=== PATIENT | female | born 1945 | race Caucasian/White ===

== ENCOUNTER 2016-11-10 14:37 | Outpatient (CLI) | payer MEDICARE | END 2016-11-10 14:38 | disposition critical access hospital (66) | LOC: EMS 14:37 | PROVIDERS: ATTEND Surgery | DX: R06.02 Shortness of breath (principal); R53.83 Other fatigue; R42 Dizziness and giddiness; R20.2 Paresthesia of skin | CPT/HCPCS: A0425; A0427 ==

== ENCOUNTER 2016-11-10 15:10 | Emergency (ER) | payer MEDICARE ==
--- NOTE | 2016-11-10 15:25 | ED Physician Documentation ---
PD HPI CHEST PAIN - Stated complaint Stated Complaint: SOA - Chief complaint Chief Complaint: Cardiac - History obtained from History obtained from: Patient - Additional information Additional information: This patient is a 71-year-old female without any history of established medical problems she does take a multivitamin vitamin D and fish oil. She has been evaluated for palpitations in the past and has had a negative Holter monitor. She apparently is pending evaluation with a new Holter monitor but is not come in the mail yet. This patient frequently has episodes of palpitations. This patient today felt weak and lightheaded and noticed that she felt worse today while working in her garden. She did not really have any chest pain or chest heaviness. There is no nausea vomiting. No fever chills constipation or diarrhea. She says she just felt weak and his weakness was made worse by standing. She denies having any history of known hypertension, diabetes, coronary disease, dyslipidemia and there is no smoking drinking or drug use history that is significant. Review of systems: For pertinent positive and negative questions for the review of systems please see history of present illness. Otherwise all other systems have been reviewed and are negative. Dragon disclaimer: Parts of this medical record were created using voice recognition technology. Because of the inherent limitations of this system occasional same sounding word substitutions do occur and persist despite proofreading. Please read the document for context. PD PAST MEDICAL HISTORY - Past Medical History Cardiovascular: None Respiratory: None Neuro: None Endocrine/Autoimmune: None Derm: Other - Past Surgical History Past Surgical History: No - Present Medications Home Medications: Ambulatory Orders Medication Instructions Recorded Confirmed Alprazolam [Xanax] 0.25 mg PO BID PRN #12 tablet 11/10/16 - Allergies Allergies/Adverse Reactions: Allergies Allergy/AdvReac Type Severity Reaction Status Date / Time bacitracin Allergy Rash Verified 11/25/15 14:44 [From Neosporin ([id number])] bacitracin zinc * Allergy Rash Verified 11/25/15 14:44 [From Neosporin ([id number]-[id number])] neomycin sulfate * Allergy Rash Verified 11/25/15 14:44 [From Neosporin ([id number]-[id number])] polymyxin B Allergy Rash Verified 11/25/15 14:44 [From Neosporin ([id number])] - Social History Does the pt smoke?: No Smoking Status: Never smoker Does the pt drink ETOH?: No Does the pt have substance abuse?: No PD ED PE NORMAL - General General: Alert and oriented X 3, Other (Thin frail very anxious female) - HEENT HEENT: Atraumatic, PERRL, EOMI - Neck Neck: No bony TTP - Cardiac Cardiac: RRR, No gallop - Respiratory Respiratory: No respiratory distress, Clear bilaterally - Abdomen Abdomen: Normal bowel sounds, Soft, Non tender, Non distended - Rectal Rectal: Deferred - Back Back: No CVA TTP, No spinal TTP - Derm Derm: Normal color, No rash - Extremities Extremities: No deformity, No tenderness to palpate, Normal ROM s pain, No edema - Neuro Neuro: Alert and oriented X 3, director of 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 2-12 intact, No motor deficit, No sensory deficit - Psych Psych: Other (Anxious and shaky) Results - Vitals Vitals: Vital Signs - 24 hr 11/10/16 11/10/16 11/10/16 15:11 15:57 17:45 Temperature 36.4 C L Heart Rate 80 77 75 Respiratory 26 H 24 16 Rate Blood Pressure 112/94 H 124/67 107/67 O2 Saturation 99 99 97 Oxygen O2 Source Room air - Labs Labs: Laboratory Tests 11/10/16 11/10/16 11/10/16 15:53 15:53 15:53 WBC 5.6 RBC 4.02 L Hgb 12.6 Hct 37.1 MCV 92.3 MCH 31.4 H MCHC 34.0 RDW 12.8 Plt Count 197 MPV 8.6 Neut # 3.7 Lymph # 1.3 L Bates # 0.4 Eos # 0.1 Baso # 0.1 Absolute Nucleated RBC 0.00 Nucleated RBCs 0.0 Sodium 134 L Potassium 3.7 Chloride 101 Carbon Dioxide 22 Anion Gap 11.0 BUN 18 Creatinine 0.9 Estimated GFR (MDRD) 62 L Glucose 154 H Calcium 9.7 Troponin I < 0.04 TSH Urine Color Urine Clarity Urine pH Ur Specific [place] Urine Protein Urine Glucose (UA) Urine Ketones Urine Occult Blood Urine Nitrite Urine Bilirubin Urine Urobilinogen Ur Leukocyte Esterase Ur Microscopic Review Urine Culture Comments 11/10/16 11/10/16 15:53 17:39 WBC RBC Hgb Hct MCV MCH MCHC RDW Plt Count MPV Neut # Lymph # Bates # Eos # Baso # Absolute Nucleated RBC Nucleated RBCs Sodium Potassium Chloride Carbon Dioxide Anion Gap BUN Creatinine Estimated GFR (MDRD) Glucose Calcium Troponin I TSH 4.68 Urine Color YELLOW Urine Clarity CLEAR Urine pH 7.0 Ur Specific [place] <=1.005 Urine Protein NEGATIVE Urine Glucose (UA) NEGATIVE Urine Ketones 40 H Urine Occult Blood NEGATIVE Urine Nitrite NEGATIVE Urine Bilirubin NEGATIVE Urine Urobilinogen 0.2 (NORMAL) Ur Leukocyte Esterase NEGATIVE Ur Microscopic Review NOT INDICATED Urine Culture Comments NOT INDICATED PD MEDICAL DECISION MAKING - ED course ED course: Patient is a very nice 71-year-old female brought in with the chief complaints of feeling dizzy and having palpitations. This patient does have a history of palpitations in the past and actually had a Holter monitor testing done in the past that was unremarkable. EMS mentions that when they first got there the patient appeared very anxious and panicky she was noted to be mildly hypertensive, tachycardic and was shaking. By the time she reached the emergency department she is better but did have a look of severe anxiousness. We tried to calm her down verbally and had her take some deep breaths and most of her neurologic symptoms of numbness and tingling have dissipated. She has never had any chest pain or shortness of breath this a feeling of a rapid irregular heart beat and dizziness which she has had previously. On physical examination she is a well-appearing 71-year-old female who looks young for her age. She is thin and otherwise has a normal cardiac and pulmonary exam. Chest x-ray shows no acute disease blood work on this patient is unremarkable including troponin and urine is negative for infection EKG shows sinus rhythm at 74 bpm the WA QRS and QT intervals are within normal limits. There is a single lead with T-wave inversion in V2. Otherwise there is no electrocardiographic evidence of recent or remote infarct or ischemia in my opinion. I think this patient is low risk for ACS. From what I saw on what I know about her history think there is definitely an anxiety component. I did recommend that she continue to get the Holter monitor follow-up with her physician and return if worse however I did recommend mainly for diagnostic ability to try a very small dose of Xanax if she gets 1 of these attacks again to see if it helps. Disposition: To home Clinical impression: 1. Palpitations 2. Suspect panic or anxiety attack Departure - Departure Disposition: 01 Home, Self Care Clinical Impression: Panic anxiety syndrome Condition: Good Instructions: ED Panic Attack Follow-Up: Saloni Childs ARNP [Primary Care Provider] - Prescriptions: Alprazolam [Xanax] 0.25 mg PO BID PRN #12 tablet PRN Reason: Anxiety
[2016-11-10] MEDS ORDERED: SODIUM CHLORIDE 0.9% 1,000 ML IV ONE (15:42)
[2016-11-10] MEDS ORDERED: ONDANSETRON 4 MG/2 ML VIAL ONE (16:02)
[2016-11-10] MEDS ORDERED: ONDANSETRON 4 MG/2 ML VIAL IVP STA (16:03)
[2016-11-10] MEDS ORDERED: LORazepam 2 MG/ML SYRINGE IVP STA (16:03)
[2016-11-10 16:04] LABS: BASOPHILS # (AUTO) 0.1 10^3/uL (0.0-0.1); EOSINOPHILS # (AUTO) 0.1 10^3/uL (0.0-0.7); HCT - HEMATOCRIT 37.1 % (37.0-47.0); HGB - HEMOGLOBIN 12.6 g/dL (12.0-16.0); LYMPHOCYTES # (AUTO) 1.3 10^3/uL (1.5-3.5); LYMPHOCYTES % (AUTO) 23.7 %; MEAN CORPUSCULAR HEMOGLOBIN 31.4 pg (27.0-31.0); MEAN CORPUSCULAR VOLUME 92.3 fL (81.0-99.0); MEAN PLATELET VOLUME 8.6 fL (7.9-10.8); MONOCYTES # (AUTO) 0.4 10^3/uL (0.0-1.0); MONOCYTES % (AUTO) 7.5 %; NEUTROPHILS # (AUTO) 3.7 10^3/uL (1.5-6.6); NEUTROPHILS % (AUTO) 66.8 %; RED BLOOD COUNT 4.02 10^6/uL (4.20-5.40); RED CELL DISTRIBUTION WIDTH 12.8 % (12.0-15.0); UNCORRECTED WHITE BLOOD COUNT 5.6 x10^3/uL; WHITE BLOOD COUNT 5.6 x10^3/uL (4.8-10.8)
[2016-11-10] MEDS ORDERED: LORazepam 2 MG/ML SYRINGE ONE (16:04)
--- NOTE | 2016-11-10 16:07 | XRAY Preliminary Report ---
Exam: XR Chest 1 View IMPRESSION: No acute intrathoracic plain film abnormality. [facility] SITE ID: [id number]
--- NOTE | 2016-11-10 16:09 | XRAY Report ---
EXAM: CHEST RADIOGRAPHY EXAM DATE: 11/10/2016 04:01 PM. CLINICAL HISTORY: PALPITATIONS. COMPARISON: 05/22/2014. TECHNIQUE: 1 view. FINDINGS: Lungs/Pleura: Lungs are well expanded. Relative increase in opacity within the left lateral mid chest is probably secondary to overlying soft tissue. No evidence of acute consolidation or effusion. No p neumothorax. Mediastinum: Within exam limitations, cardiomediastinal contour is normal. Other: There is scoliotic curvature of the thoracolumbar spine. IMPRESSION: No acute intrathoracic plain film abnormality. [facility] Referring Provider Line: [phone] SITE ID: [id number]
[2016-11-10 16:33] LABS: CALCIUM 9.7 mg/dL (8.5-10.3); CREATININE 0.9 mg/dL (0.4-1.0); POTASSIUM 3.7 mmol/L (3.5-5.0)
[2016-11-10 17:45] VITALS: BP 107/67
[2016-11-10 17:52] LABS: BILIRUBIN,URINE NEGATIVE (NEGATIVE)
[2016-11-10 17:53] LABS: UA CHARGE (STRIP ONLY) YES; UR CULTURE IF IND NOT INDICATED
== END 2016-11-10 18:18 | disposition home or self-care (01) ==
LOC: ED 15:10
DX: F41.0 Panic disorder [episodic paroxysmal anxiety] (principal); I45.81 Long QT syndrome; R00.0 Tachycardia, unspecified
CPT/HCPCS: 36415; 71010; 80048; 81003; 84443; 84484; 85025; 93005; 96374; 96375; 99284; J2060; 81001; 87086

== ENCOUNTER 2018-12-18 16:03 | Emergency (ER) | payer MEDICARE ==
[2018-12-18 16:31] LABS: BASOPHILS # (AUTO) 0.1 10^3/uL (0.0-0.1); EOSINOPHILS # (AUTO) 0.2 10^3/uL (0.0-0.7); EOSINOPHILS % (AUTO) 2.4 %; HGB - HEMOGLOBIN 11.9 g/dL (12.0-16.0); LYMPHOCYTES # (AUTO) 1.6 10^3/uL (1.5-3.5); MEAN CORPUSCULAR HEMOGLOBIN 31.5 pg (27.0-31.0); MEAN CORPUSCULAR HGB CONC 33.4 g/dL (32.0-36.0); MEAN CORPUSCULAR VOLUME 94.2 fL (81.0-99.0); MONOCYTES # (AUTO) 0.4 10^3/uL (0.0-1.0); MONOCYTES % (AUTO) 5.6 %; NEUTROPHILS # (AUTO) 5.1 10^3/uL (1.5-6.6); NEUTROPHILS % (AUTO) 68.7 %; PLT - PLATELET COUNT 206 10^3/uL (130-450); RED BLOOD COUNT 3.78 10^6/uL (4.20-5.40); RED CELL DISTRIBUTION WIDTH 12.3 % (12.0-15.0); WHITE BLOOD COUNT 7.4 x10^3/uL (4.8-10.8)
--- NOTE | 2018-12-18 16:44 | ED Physician Documentation ---
PD HPI CHEST PAIN - Stated complaint Stated Complaint: CP - Chief complaint Chief Complaint: Cardiac - History obtained from History obtained from: Patient - History of Present Illness Timing - onset: How many hours ago (7), Today Timing - onset during: Rest Timing - details: Abrupt onset (she had onset of chest tightness intermittently this morning about 9 am. lasted for minute or so. Occurred a few times through the morning not related to walking, position, nor eating. No prior similar.), Now resolved, Waxing and waning Quality: Tightness, Aching. No: Sharp, Tearing Location: Substernal Radiation: No: Jaw, Neck, Back Improved by: No: Rest Worsened by: No: Exertion, Inspiration, Eating, Movement Associated symptoms: No: Shortness of air, Nausea, Feeling faint / dizzy, Cough Similar symptoms before: Has not had sx before Recently seen: Not recently seen Review of Systems Constitutional: denies: Fever Nose: denies: Rhinorrhea / runny nose, Congestion Throat: denies: Sore throat Respiratory: denies: Cough GI: denies: Abdominal Pain, Nausea, Vomiting Skin: denies: Rash, Lesions PD PAST MEDICAL HISTORY - Past Medical History Cardiovascular: None Respiratory: None Endocrine/Autoimmune: None Derm: Other - Past Surgical History Past Surgical History: No - Present Medications Home Medications: Ambulatory Orders Medication Instructions Recorded Confirmed Alprazolam [Xanax] 0.25 mg PO BID PRN #12 tablet 11/10/16 - Allergies Allergies/Adverse Reactions: Allergies Allergy/AdvReac Type Severity Reaction Status Date / Time bacitracin Allergy Rash Verified 12/18/18 16:13 [From Neosporin ([id number]-[id number])] bacitracin zinc * Allergy Rash Verified 12/18/18 16:13 [From Neosporin (ciy-tql-nddwd)] neomycin sulfate * Allergy Rash Verified 12/18/18 16:13 [From Neosporin (iat-[id number])] polymyxin B Allergy Rash Verified 12/18/18 16:13 [From Neosporin ([id number]-hhq-[id number])] - Social History Does the pt smoke?: No Smoking Status: Never smoker Does the pt drink ETOH?: No Does the pt have substance abuse?: No PD ED PE NORMAL - Vitals Vital signs reviewed: Yes - General General: Alert and oriented X 3, No acute distress, Well developed/nourished - HEENT HEENT: Pharynx benign - Neck Neck: Supple, no meningeal sign, No adenopathy - Cardiac Cardiac: RRR, No murmur - Respiratory Respiratory: Clear bilaterally, Other (no chestwall tenderness) - Abdomen Abdomen: Normal bowel sounds, Soft, Non tender, Non distended - Back Back: No CVA TTP - Derm Derm: Normal color, Warm and dry - Extremities Extremities: No deformity, No tenderness to palpate, Normal ROM s pain, No edema, No calf tenderness / cord - Neuro Neuro: Alert and oriented X 3, No motor deficit, Normal speech Results - Vitals Vitals: Oxygen O2 Source Room air - EKG (time done) 16:17 Rate: Rate (enter#) (80) Rhythm: NSR Fishtail: Normal Intervals: Normal DE QRS: Normal Ischemia: Normal ST segments. No: ST elevation c/w ischemia, ST depression - Labs Labs: Laboratory Tests 12/18/18 12/18/18 12/18/18 16:25 16:25 16:25 WBC 7.4 RBC 3.78 L Hgb 11.9 L Hct 35.6 L MCV 94.2 MCH 31.5 H MCHC 33.4 RDW 12.3 Plt Count 206 MPV 10.0 Neut # (Auto) 5.1 Lymph # (Auto) 1.6 [place] # (Auto) 0.4 Eos # (Auto) 0.2 Baso # (Auto) 0.1 Absolute Nucleated RBC 0.00 Nucleated RBC % 0.0 Sodium 136 Potassium 3.5 Chloride 101 Carbon Dioxide 26 Anion Gap 9.0 BUN 20 Creatinine 0.7 Estimated GFR (MDRD) 82 L Glucose 175 H Calcium 9.3 Total Bilirubin 0.4 AST 35 ALT 30 Alkaline Phosphatase 62 Troponin I High Sens 4.3 Total Protein 6.3 L Albumin 3.9 Globulin 2.4 Albumin/Globulin Ratio 1.6 Lipase 37 - Rads (name of study) chest xray Radiology: Prelim report reviewed (normal), See rad report PD MEDICAL DECISION MAKING - ED course Complexity details: considered differential (intermittent nonexertional CP with normal labs, ECG, Xray. Does not sound like ACS. ), d/w patient Departure - Departure Disposition: 01 Home, Self Care Clinical Impression: Chest pain Qualifiers: Chest pain type: precordial pain Qualified Code(s): R07.2 - Precordial pain Condition: Stable Record reviewed to determine appropriate education?: Yes Instructions: ED Chest Pain Atypical Unkn Cause Follow-Up: Adelaide Lambert MD [Primary Care Provider] - Comments: No signs of heart failure, lung problems, heart attack or other significant process. It is not clear what the pain is from. Consider trying some anti- inflammatories such as naproxen or ibuprofen twice daily for the next several days. Recheck if not improved over the next several days and return sooner or follow-up if you have other symptoms develop as well such as fever, cough, rash, etc. or if the pattern of the pain correlates with activity or eating or breathing. Discharge Date/Time: 12/18/18 18:14
[2018-12-18 16:48] LABS: ALBUMIN 3.9 g/dL (3.2-5.5); ALBUMIN/GLOBULIN RATIO 1.6 (1.0-2.2); BILIRUBIN,TOTAL 0.4 mg/dL (0.2-1.0); CALCIUM 9.3 mg/dL (8.5-10.3); CREATININE 0.7 mg/dL (0.4-1.0); TOTAL PROTEIN 6.3 g/dL (6.7-8.2)
--- NOTE | 2018-12-18 17:06 | XRAY Report ---
Reason: CP Procedure Date: 12/18/2018 Accession Number: [id number] / [id number] Procedure: XR - Chest 1 View X-Ray CPT Code: 38001 FULL RESULT: EXAM: CHEST RADIOGRAPHY EXAM DATE: 12/18/2018 04:54 PM. CLINICAL HISTORY: Chest pain. COMPARISON: None. TECHNIQUE: 1 view. FINDINGS: Lungs/Pleura: No focal opacities evident. No pleural effusion. No pneumothorax. Mediastinum: Within exam limitations, the cardiomediastinal contour is normal. Other: Diffuse degenerative and scoliotic changes are seen in the spine. No acute osseous abnormality is demonstrated. IMPRESSION: No acute cardiopulmonary abnormality. Moderate scoliotic degenerative changes of the thoracolumbar spine seen. [facility]
[2018-12-18] MEDS ORDERED: KETOROLAC 15 MG/ML VIAL IVP STA (17:39)
[2018-12-18] MEDS ORDERED: MAG HYDROX/AL HYDROX/SIMETH 30 ML UDC PO STA (17:40)
[2018-12-18 18:04] VITALS: BP 119/75
[2018-12-18] MEDS ORDERED: IBUPROFEN 600 MG TABLET PO STA (18:06)
== END 2018-12-18 18:14 | disposition home or self-care (01) ==
LOC: ED 16:03
DX: R07.2 Precordial pain (principal)
CPT/HCPCS: 36415; 71045; 80053; 83690; 84484; 85025; 93005; 99284; A9270

== ENCOUNTER 2019-08-04 02:45 | Emergency (ER) | payer MEDICARE ==
--- NOTE | 2019-08-04 03:12 | ED Physician Documentation ---
PD HPI CHEST PAIN - Stated complaint Stated Complaint: FAST HEART - Chief complaint Chief Complaint: Cardiac - History obtained from History obtained from: Patient - History of Present Illness Timing - onset: Enter time (2204) Timing - onset during: Rest Timing - duration: Minutes Timing - details: Abrupt onset, Now resolved Quality: Throbbing Location: Substernal, Left chest Radiation: Left upper extremity Worsened by: No: Exertion, Inspiration, Eating, Movement, Palpation, Position Associated symptoms: Palpitations. No: Shortness of air, Diaphoresis, Nausea, Vomiting, Feeling faint / dizzy, General Weakness, Cough Similar symptoms before: Diagnosis (anxiety) Recently seen: Not recently seen - Additional information Additional information: Previously well 74-year-old female with a history of anxiety and prior episodes of palpitations which have been investigated with the use of a Holter monitor without findings has had an episode today of sensation of a rapid irregular heart rate and some tingling down her left arm. This lasted several minutes and resolved. She did not check her pulse. She has had similar episodes previously and there have never been findings. She considered staying home and when a second episode happened lasting less time and less severe she decided to come to the emergency department. Over the past week she has had some burning in her upper chest with breathing and she is concerned about the possibility of coronavirus. She states that her intestines feel like they are unhappy she has not had diarrhea nausea or vomiting just does not feel well. She has developed some fatigue as well. Review of Systems Constitutional: reports: Fatigue. denies: Fever, Chills, Myalgias Eyes: denies: Decreased vision Ears: denies: Ear pain Nose: denies: Rhinorrhea / runny nose, Congestion Throat: denies: Oral lesions / sores, Sore throat Cardiac: reports: Chest pain / pressure, Palpitations Respiratory: denies: Dyspnea, Cough GI: denies: Vomiting PD PAST MEDICAL HISTORY - Past Medical History Past Medical History: Yes Cardiovascular: None Respiratory: None Endocrine/Autoimmune: None Derm: Other - Past Surgical History Past Surgical History: No - Present Medications Home Medications: Ambulatory Orders Medication Instructions Recorded Confirmed Alprazolam [Xanax] 0.25 mg PO BID PRN #12 tablet 11/10/16 - Allergies Allergies/Adverse Reactions: Allergies Allergy/AdvReac Type Severity Reaction Status Date / Time bacitracin Allergy Rash Verified 08/04/19 02:58 [From Neosporin (mle-ipe-vylzy)] bacitracin zinc * Allergy Rash Verified 08/04/19 02:58 [From Neosporin (pip-yck-cnxrv)] neomycin sulfate * Allergy Rash Verified 08/04/19 02:58 [From Neosporin (ltt-ltc-mvksm)] polymyxin B Allergy Rash Verified 08/04/19 02:58 [From Neosporin (qxk-lmj-xjxii)] - Social History Does the pt smoke?: No Smoking Status: Never smoker Does the pt drink ETOH?: Yes ETOH Use: Wine Does the pt have substance abuse?: No - Immunizations Immunizations are current?: Yes - POLST Patient has POLST: No PD ED PE NORMAL - Vitals Vital signs reviewed: Yes (hypertensive) - General General: Alert and oriented X 3, No acute distress, Well developed/nourished - HEENT HEENT: Atraumatic, PERRL, EOMI, Ears normal, Moist mucous membranes, Pharynx benign, Dentition benign - Neck Neck: Supple, no meningeal sign, No bony TTP - Cardiac Cardiac: RRR, No murmur - Respiratory Respiratory: No respiratory distress, Clear bilaterally - Abdomen Abdomen: Soft, Non tender - Back Back: No CVA TTP, No spinal TTP - Derm Derm: Normal color, Warm and dry, No rash - Extremities Extremities: No deformity, No edema - Neuro Neuro: Alert and oriented X 3, leather heel 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 2-12 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, No motor deficit, No sensory deficit, Normal speech Eye Opening: Spontaneous Motor: Obeys Commands Verbal: Oriented GCS Score: 15 - Psych Psych: Normal mood, Normal affect Results - Vitals Vitals: Vital Signs - 24 hr 08/04/19 08/04/19 02:45 03:05 Temperature 36.7 C Heart Rate 84 69 Respiratory 20 16 Rate Blood Pressure 189/94 H 157/90 H O2 Saturation 99 100 Oxygen O2 Source Room air - EKG (time done) 0257 Rate: Rate (enter#) (73) Rhythm: NSR, JARET QRS: LVH Compare to prior EKG: Unchanged from prior EKG (SPT 12-18-2018 no sig change) Computer interpretation: Agree with computer - Labs Labs: Laboratory Tests 04/02/20 04/02/20 04/02/20 03:35 03:35 03:35 WBC 5.5 RBC 4.25 Hgb 13.1 Hct 38.7 MCV 91.1 MCH 30.8 MCHC 33.9 RDW 12.0 Plt Count 205 MPV 9.6 Neut # (Auto) 3.5 Lymph # (Auto) 1.5 [place] # (Auto) 0.4 Eos # (Auto) 0.1 Baso # (Auto) 0.1 Absolute Nucleated RBC 0.00 Nucleated RBC % 0.0 Sodium 133 L Potassium 3.8 Chloride 100 L Carbon Dioxide 26 Anion Gap 7.0 BUN 12 Creatinine 0.7 Estimated GFR (MDRD) 82 L Glucose 100 Calcium 8.8 Total Bilirubin 0.6 AST 25 ALT 26 Alkaline Phosphatase 67 Troponin I High Sens 4.4 Total Protein 6.4 L Albumin 4.2 Globulin 2.2 Albumin/Globulin Ratio 1.9 Lipase 35 - Rads (name of study) chest Radiology: Prelim report reviewed (Impression: 1. No acute cardiopulmonary abnormality seen. 2. Possible small hiatal hernia. 3. Scoliosis.), EMP read indepedently, See rad report PD MEDICAL DECISION MAKING - ED course Complexity details: reviewed old records, reviewed results, re-evaluated patient , considered differential, d/w patient ED course: Previously well 74-year-old female with not much of a past medical history with the exception of some episodes of palpitations that have been diagnosed as panic or anxiety. She has had an episode this evening she is concerned about the possibility of coronavirus as she does have some congestion in her upper chest which is even now improved. She has not had fever or cough. She is asymptomatic here in the emergency department and we have undertaken a work-up to include checking the troponin and chest x-ray as well as swabbing the patient's nose for COVID 19. Departure - Departure Disposition: 01 Home, Self Care Clinical Impression: Atypical chest pain Condition: Stable Instructions: ED Chest Pain Atypical Unkn Cause Follow-Up: Adelaide Lambert MD [Primary Care Provider] -
[2019-08-04 03:43] LABS: BASOPHILS # (AUTO) 0.1 10^3/uL (0.0-0.1); BASOPHILS % (AUTO) 0.9 %; EOSINOPHILS # (AUTO) 0.1 10^3/uL (0.0-0.7); EOSINOPHILS % (AUTO) 1.3 %; HGB - HEMOGLOBIN 13.1 g/dL (12.0-16.0); LYMPHOCYTES # (AUTO) 1.5 10^3/uL (1.5-3.5); LYMPHOCYTES % (AUTO) 26.9 %; MEAN CORPUSCULAR HEMOGLOBIN 30.8 pg (27.0-31.0); MEAN CORPUSCULAR HGB CONC 33.9 g/dL (32.0-36.0); MEAN CORPUSCULAR VOLUME 91.1 fL (81.0-99.0); MEAN PLATELET VOLUME 9.6 fL (7.9-10.8); MONOCYTES # (AUTO) 0.4 10^3/uL (0.0-1.0); MONOCYTES % (AUTO) 7.2 %; NEUTROPHILS # (AUTO) 3.5 10^3/uL (1.5-6.6); NEUTROPHILS % (AUTO) 63.3 %; PLT - PLATELET COUNT 205 10^3/uL (130-450); RED BLOOD COUNT 4.25 10^6/uL (4.20-5.40); WHITE BLOOD COUNT 5.5 x10^3/uL (4.8-10.8)
[2019-08-04 03:55] LABS: ALBUMIN 4.2 g/dL (3.2-5.5); ALBUMIN/GLOBULIN RATIO 1.9 (1.0-2.2); BILIRUBIN,TOTAL 0.6 mg/dL (0.2-1.0); CALCIUM 8.8 mg/dL (8.5-10.3); CREATININE 0.7 mg/dL (0.4-1.0); TOTAL PROTEIN 6.4 g/dL (6.7-8.2)
--- NOTE | 2019-08-04 03:56 | XRAY Report ---
Reason: chest pain Procedure Date: 08/04/2019 Accession Number: [id number] / [id number] Procedure: XR - Chest 1 View X-Ray CPT Code: 20552 Final Report FULL RESULT: EXAM: CHEST RADIOGRAPHY EXAM DATE: 08/04/2019 03:49 AM. CLINICAL HISTORY: Chest pain. COMPARISON: CHEST 1 VIEW 12/18/2018 4:31 PM. TECHNIQUE: 1 view. FINDINGS: Lungs/Pleura: No alveolar consolidation or pleural effusion seen. No pneumothorax. Mediastinum: Within exam limitations, heart size is normal. Possible small hiatal hernia. Other: Thoracolumbar scoliosis is unchanged. IMPRESSION: 1. No acute cardiopulmonary abnormality seen. 2. Possible small hiatal hernia. 3. Scoliosis. [facility]
[2019-08-04 04:48] VITALS: BP 145/62
== END 2019-08-04 04:48 | disposition home or self-care (01) ==
LOC: ED 02:45
DX: R07.89 Other chest pain (principal)
CPT/HCPCS: 36415; 71045; 80053; 81599; 83690; 84484; 85025; 93005; 99284

== ENCOUNTER 2019-12-19 17:10 | Outpatient (CLI) | payer MEDICARE | END 2019-12-19 17:11 | disposition critical access hospital (66) | LOC: EMS 17:10 | PROVIDERS: ATTEND Surgery | DX: R06.09 Other forms of dyspnea (principal); R07.89 Other chest pain | CPT/HCPCS: A0425; A0427 ==

== ENCOUNTER 2019-12-19 17:43 | Emergency (ER) | payer MEDICARE ==
[2019-12-19 18:04] LABS: BASOPHILS # (AUTO) 0.1 10^3/uL (0.0-0.1); BASOPHILS % (AUTO) 1.1 %; EOSINOPHILS # (AUTO) 0.1 10^3/uL (0.0-0.7); EOSINOPHILS % (AUTO) 1.9 %; HGB - HEMOGLOBIN 11.6 g/dL (12.0-16.0); LYMPHOCYTES # (AUTO) 1.7 10^3/uL (1.5-3.5); LYMPHOCYTES % (AUTO) 26.9 %; MEAN CORPUSCULAR HEMOGLOBIN 31.7 pg (27.0-31.0); MEAN CORPUSCULAR HGB CONC 33.7 g/dL (32.0-36.0); MONOCYTES # (AUTO) 0.5 10^3/uL (0.0-1.0); MONOCYTES % (AUTO) 7.8 %; NEUTROPHILS # (AUTO) 3.9 10^3/uL (1.5-6.6); NEUTROPHILS % (AUTO) 62.1 %; PLT - PLATELET COUNT 184 10^3/uL (130-450); RED BLOOD COUNT 3.66 10^6/uL (4.20-5.40); RED CELL DISTRIBUTION WIDTH 12.2 % (12.0-15.0); WHITE BLOOD COUNT 6.3 x10^3/uL (4.8-10.8)
[2019-12-19 18:18] LABS: ALBUMIN 3.8 g/dL (3.2-5.5); ALBUMIN/GLOBULIN RATIO 1.7 (1.0-2.2); BILIRUBIN,TOTAL 0.4 mg/dL (0.2-1.0); CALCIUM 9.3 mg/dL (8.5-10.3); CREATININE 0.9 mg/dL (0.4-1.0)
--- NOTE | 2019-12-19 18:21 | XRAY Report ---
PROCEDURE: Chest 1 View X-Ray INDICATIONS: Chest Pain TECHNIQUE: One view of the chest was acquired. COMPARISON: 08/04/2019 FINDINGS: Surgical changes and devices: None. Lungs and pleura: No pleural effusions or pneumothorax. Lungs are clear. Mediastinum: Mediastinal contours appear normal. Heart size is normal. Bones and chest wall: Severe S-shaped scoliosis. Bones otherwise not well evaluated. IMPRESSION: No acute cardiac bony process demonstrated radiographically. Severe scoliosis. Reviewed by: Maurice Carcamo MD on 12/19/2019 6:20 PM PDT Approved by: Maurice Carcamo MD on 12/19/2019 6:20 PM PDT Station ID: [id number]
--- NOTE | 2019-12-19 18:29 | ED Physician Documentation ---
PD HPI CHEST PAIN - Stated complaint Stated Complaint: CHEST PRESSURE - Chief complaint Chief Complaint: Cardiac - History obtained from History obtained from: Patient - History of Present Illness Timing - onset: Today Timing - onset during: Rest Timing - duration: Other (1-2 seconds) Timing - details: Abrupt onset, Intermittant Pain level max: 0 Pain level now: 0 Quality: Other (palpitations, "like my heart flips") Location: Substernal Radiation: No: Jaw, Neck, Back, Abdominal, Left upper extremity, Right upper extremity Improved by: Nothing Worsened by: No: Exertion, Inspiration, Eating, Movement, Palpation, Position Associated symptoms: No: Shortness of air, Diaphoresis, Nausea, Vomiting, Feeling faint / dizzy, General Weakness, Palpitations, Cough Review of Systems Constitutional: denies: Fever, Chills Throat: denies: Dental pain / toothache, Sore throat Cardiac: reports: Palpitations. denies: Chest pain / pressure Respiratory: denies: Cough GI: denies: Nausea, Vomiting, Diarrhea Skin: denies: Rash Musculoskeletal: denies: Neck pain, Back pain Neurologic: denies: Headache PD PAST MEDICAL HISTORY - Past Medical History Past Medical History: No Cardiovascular: None Respiratory: None Endocrine/Autoimmune: None Derm: Other - Past Surgical History Past Surgical History: No - Present Medications Home Medications: Ambulatory Orders Medication Instructions Recorded Confirmed Alprazolam [Xanax] 0.25 mg PO BID PRN #12 tablet 11/10/16 - Allergies Allergies/Adverse Reactions: Allergies Allergy/AdvReac Type Severity Reaction Status Date / Time bacitracin Allergy Rash Verified 12/19/19 17:53 [From Neosporin ([id number])] bacitracin zinc * Allergy Rash Verified 12/19/19 17:53 [From Neosporin ([id number])] neomycin sulfate * Allergy Rash Verified 12/19/19 17:53 [From Neosporin ([id number])] polymyxin B Allergy Rash Verified 12/19/19 17:53 [From Neosporin ([id number])] - Social History Does the pt smoke?: No Smoking Status: Never smoker Does the pt drink ETOH?: Yes Does the pt have substance abuse?: No - Immunizations Immunizations are current?: Yes - POLST Patient has POLST: No PD ED PE NORMAL - Vitals Vital signs reviewed: Yes - General General: Alert and oriented X 3, No acute distress - HEENT HEENT: Moist mucous membranes - Neck Neck: Supple, no meningeal sign - Cardiac Cardiac: RRR, No murmur, Strong equal pulses - Respiratory Respiratory: No respiratory distress, Clear bilaterally - Abdomen Abdomen: Soft, Non tender, Non distended - Derm Derm: Warm and dry - Extremities Extremities: No edema, No calf tenderness / cord - Neuro Neuro: Alert and oriented X 3 - Psych Psych: Normal mood, Normal affect Results - Vitals Vitals: Vital Signs - 24 hr 12/19/19 12/19/19 12/19/19 17:50 17:57 18:27 Temperature 37.5 C Heart Rate 87 86 Respiratory 18 14 Rate Blood Pressure 122/89 H 122/83 H Blood Pressure 122/83 H [Right] O2 Saturation 97 97 12/19/19 19:13 Temperature Heart Rate 80 Respiratory 14 Rate Blood Pressure 118/64 Blood Pressure [Right] O2 Saturation 100 Oxygen O2 Source Room air - EKG (time done) 1752 Rate: Rate (enter#) Rhythm: NSR, Other (pvc) Mobile: Normal Intervals: Normal PA QRS: Normal, LVH Ischemia: Normal ST segments - Labs Labs: Laboratory Tests 12/19/19 12/19/19 12/19/19 18:00 18:00 18:00 WBC 6.3 RBC 3.66 L Hgb 11.6 L Hct 34.4 L MCV 94.0 MCH 31.7 H MCHC 33.7 RDW 12.2 Plt Count 184 MPV 10.0 Neut # (Auto) 3.9 Lymph # (Auto) 1.7 [place] # (Auto) 0.5 Eos # (Auto) 0.1 Baso # (Auto) 0.1 Absolute Nucleated RBC 0.00 Nucleated RBC % 0.0 Sodium 136 Potassium 3.7 Chloride 100 L Carbon Dioxide 25 Anion Gap 11.0 BUN 19 Creatinine 0.9 Estimated GFR (MDRD) 61 L Glucose 103 H Calcium 9.3 Total Bilirubin 0.4 AST 33 ALT 35 Alkaline Phosphatase 65 Troponin I High Sens 3.9 Total Protein 6.0 L Albumin 3.8 Globulin 2.2 Albumin/Globulin Ratio 1.7 Lipase 32 - Rads (name of study) cxr Radiology: Prelim report reviewed, EMP read contemporaneously, See rad report (No acute cardiac bony process demonstrated radiographically. Severe scoliosis. ) PD MEDICAL DECISION MAKING - ED course Complexity details: reviewed results, re-evaluated patient, considered differential, d/w patient, d/w family ED course: Patient with palpitations today. They coincide the premature ventricular contractions on the monitor. No evidence of acute coronary syndrome. No evidence of pulmonary embolus, pneumothorax, aortic dissection. Patient counseled regarding signs and symptoms for which I believe and urgent re- evaluation would be necessary. Patient with good understanding of and agreement to plan and is comfortable going home at this time This document was made in part using voice recognition software. While efforts are made to proofread this document, sound alike and grammatical errors may occur. Departure - Departure Disposition: 01 Home, Self Care Clinical Impression: Premature ventricular contraction, Palpitations Condition: Good Instructions: ED Palpitations Follow-Up: your,doctor in 1 week [Other] Comments: You should avoid caffeine and stimulants. Follow-up with your doctor for further care. You have premature ventricular contractions on the monitor today. This is the cause of your symptoms. Discharge Date/Time: 12/19/19 18:50
[2019-12-19 19:18] VITALS: BP 118/64
== END 2019-12-19 18:50 | disposition home or self-care (01) ==
LOC: EDUNIT# → ED 17:43
DX: I49.3 Ventricular premature depolarization (principal); R07.89 Other chest pain; M41.9 Scoliosis, unspecified
CPT/HCPCS: 36415; 71045; 80053; 83690; 84484; 85025; 93005; 99284

== ENCOUNTER 2020-06-03 18:10 | Emergency (ER) | payer MEDICARE ==
--- NOTE | 2020-06-03 18:46 | ED Physician Documentation ---
History of Present Illness - Stated complaint Stated Complaint: C+VACCINE REACTION - Chief complaint Chief Complaint: Allergic Rx - History obtained from History obtained from: Patient - Additonal information Additional information: First dose Moderna COVID-19 vaccine at 3:45 PM. Shortly after discharge she developed heart palpitations and then subsequently nasal congestion. The nasal congestion remains but other symptoms have resolved. No rash or throat swelling. Review of Systems Constitutional: denies: Fever, Chills Nose: reports: Rhinorrhea / runny nose Throat: denies: Sore throat Cardiac: denies: Chest pain / pressure Respiratory: denies: Dyspnea, Cough PD PAST MEDICAL HISTORY - Past Medical History Past Medical History: Yes Cardiovascular: None Respiratory: None Neuro: None Endocrine/Autoimmune: None GI: GER[employer]: None : None HEENT: None Psych: Panic attacks Musculoskeletal: Scoliosis Derm: Rosacea - Past Surgical History Past Surgical History: No - Present Medications Home Medications: Ambulatory Orders Medication Instructions Recorded Confirmed Calcium Acetate 667 mg PO DAILY 06/03/20 06/03/20 Cholecalciferol [Vitamin D3] 50 mcg PO DAILY 06/03/20 06/03/20 Cimetidine 800 mg PO DAILY 06/03/20 06/03/20 - Allergies Allergies/Adverse Reactions: Allergies Allergy/AdvReac Type Severity Reaction Status Date / Time bacitracin Allergy Rash Verified 06/03/20 18:13 [From Neosporin ([id number])] bacitracin zinc * Allergy Rash Verified 06/03/20 18:13 [From Neosporin ([id number])] neomycin sulfate * Allergy Rash Verified 06/03/20 18:13 [From Neosporin ([id number])] polymyxin B Allergy Rash Verified 06/03/20 18:13 [From Neosporin ([id number])] - Social History Does the pt smoke?: No Smoking Status: Never smoker Does the pt drink ETOH?: Yes Does the pt have substance abuse?: No - Immunizations Immunizations are current?: Yes - POLST Patient has POLST: No PD ED PE NORMAL - Vitals Vital signs reviewed: Yes - General General: Alert and oriented X 3, No acute distress - HEENT HEENT: PERRL, Pharynx benign - Neck Neck: Supple, no meningeal sign, No bony TTP - Cardiac Cardiac: RRR, No murmur - Respiratory Respiratory: No respiratory distress, Clear bilaterally - Abdomen Abdomen: Non tender - Derm Derm: No rash - Neuro Neuro: Alert and oriented X 3, Normal speech Results - Vitals Vitals: Vital Signs - 24 hr 06/03/20 18:13 Temperature 37.2 C Heart Rate 96 Respiratory 18 Rate Blood Pressure 156/90 H O2 Saturation 96 Oxygen O2 Source Room air Departure - Departure Disposition: Home, Self Care Clinical Impression: Nasal congestion Vaccine reaction Qualifiers: Encounter type: initial encounter Qualified Code(s): T50.Z95A - Adverse effect of other vaccines and biological substances, initial encounter Condition: Stable Record reviewed to determine appropriate education?: Yes Instructions: ED Allergic Reaction General Other Comments: No sign of severe or significant vaccine reaction at this point. I will leave it to you if you plan to have the second dose but if you do I would ask for a more prolonged monitoring period.
[2020-06-03 19:15] VITALS: BP 146/86
== END 2020-06-03 19:20 | disposition home or self-care (01) ==
LOC: ED 18:10
DX: R09.81 Nasal congestion (principal); R00.2 Palpitations; T50.Z95A Adverse effect of other vaccines and biological substances, initial encounter; Y84.8 Other medical procedures as the cause of abnormal reaction of the patient, or of later complication, without mention of misadventure at the time of the procedure
CPT/HCPCS: 99281; 99282